=== PATIENT | male | born 1990 | race Caucasian/White ===

== ENCOUNTER → 2016-07-30 | Outpatient (CLI) | payer OTHER ==
[~2016-07-30] MED LIST: BACTRIM DS TABL1 TA1 PO; BENADRYL25 M1 PO; CEFTRIAXONE2 GM IM/IV; CLARITIN10 M2 PO; CLEOCIN HCL300 M1 PO; IBUPROFEN800 MG PO; KEFLEX500 MG PO; LABETALOL HCL100 MG PO; LEVAQUIN750 MG PO; LISINOPRIL5 MG PO; NO MEDICATIONS; NORVASC PO; PHENERGAN PO; PHENERGAN25 MG PO; PROAIR INH; SOD BICARBONATE PO; SYMBICORT INH; ULTRAM PO; VICODIN 5/500 T1 TAB PO; ZOFRAN PO
[2016-07-30 11:25] LABS: BASOPHIL% 0.6 % (0-2.5); EOSINOPHIL# 0.3 X10e3 (0-0.7); EOSINOPHIL% 5.3 % (0.0-7.0); HEMATOCRIT 43.1 % (38.0-50.0); HEMOGLOBIN 14.4 gm/dL (13.0-16.0); LYMPHOCYTE# 2.1 X10e3 (1.0-3.5); LYMPHOCYTE% 37.3 % (17.0-45.0); MEAN CELL VOLUME 90.5 FL (83-96); MEAN CORPUSCULAR HEMOGLOBIN 30.2 PG (28-34); MEAN CORPUSCULAR HGB CONC 33.4 g/dL (30-36); MEAN PLATELET VOLUME 8.2 FL (6.5-11.5); MONOCYTE# 0.4 X10e3 (0-1.0); NEUTROPHIL# 2.7 X10e3 (1.5-7.1); NEUTROPHIL% 49.8 % (40-75); PLATELET COUNT 188 X10e3 (140-420); RED BLOOD COUNT 4.76 X10e (3.90-5.60); RED CELL DISTRIBUTION WIDTH 13.6 % (11.0-15.5); WHITE BLOOD COUNT 5.5 X10e3 (4.0-10.5)
[2016-07-30 11:26] LABS: DIFF IND NO
[2016-07-30 11:39] LABS: URINE APPEARANCE CLEAR; URINE BILIRUBIN NEG (NEG); URINE BLOOD 3+ (NEG); URINE COLOR YELLOW; URINE GLUCOSE NEG (NEG); URINE KETONE NEG (NEG); URINE LEUKOCYTE ESTERASE NEG (NEG); URINE NITRATE NEG (NEG); URINE PH 5.5 (5-8); URINE PROTEIN 3+ (NEG); URINE SPECIFIC GRAVITY 1.024 (1.003-1.035)
[2016-07-30 11:42] LABS: URINE BACTERIA AUWI NEG (NEGATIVE); URINE SQUAMOUS EPITHELIAL CELL NONE SEEN /[HPF]
[2016-07-30 12:19] LABS: ALBUMIN SERUM 4.4 g/dL (3.5-5.0); BILIRUBIN,TOTAL 1.1 mg/dL (0.2-2.0); BUN/CREATININE RATIO 11.11; CREATININE SERUM 1.8 mg/dL (0.6-1.4); CREATININE,RANDOM URINE 353 mg/dL; GLOM FILT RATE Estimated 50.5 mL/min (>60); POTASSIUM 3.7 mmol/L (3.5-5.1); PROTEIN TOTAL SERUM 7.1 g/dL (6.0-8.3)
[2016-07-30 12:20] LABS: TOTAL PROTEIN,RANDOM URINE 188 mg/dl (<10)
== END | disposition home or self-care (01) ==
LOC: CLAB 10:51
PROVIDERS: Internal Medicine Nephrology
DX: N17.9 Acute kidney failure, unspecified (principal)
CPT/HCPCS: 36415; 80053; 81003; 82570; 84156; 85025

== ENCOUNTER → 2016-08-22 | Outpatient (CLI) | payer OTHER ==
--- NOTE | ~2016-08-22 | CT134 ---
[facility] A Service of [facility] RADIOLOGY TEXT RESULTS PATIENT: RHIANNA BRAR JR LOCATION: [facility] : 88 UNIT #: [id number] AGE: [address]: Rickey Marks MD SEX: M ORDER DR: [id number] [facility]. [place], [place] [address] [id number] O MR#: [id number] Acc #: [id number] NAME: RHIANNA BRAR JR : 1990 SEX: M STUDY DATE/TIME: 08/22/2016 9:31 UNIT: [facility] ROOM: STUDY DESCRIPTION: CT Guide Attending Physician: Rickey Marks M.D. Referring Physician: Rickey Marks M.D. Ordering Physician: Rickey Marks M.D. Primary Care Physician: Ching Patel M.D. MEDICAL IMAGING REPORT This report is preliminary unless electronic signature is present EXAM CT guided renal biopsy INDICTIONS: Proteinuria PROCEDURE The risks, benefits, and alternatives to the procedure were explained to the patient, and signed, informed consent was obtained. He was placed pone on the CT gantry and preliminary CT scans were performed through the region of interest. An appropriate site overlying the patient's left kidney was selected. The overlying skin was marked. The patient was prepped and draped in the usual sterile fashion. A time-out was performed as per protocol. The skin and subcutaneous tissues were anesthetized with buffered lidocaine, anesthesia needle was left in place. Repeat CT scan confirmed the appropriate trajectory of the needle and a 17 gauge coaxial needle was advanced into the inferior pole of the left kidney. Final CT scan confirmed appropriate position of the needle and at this point three core samples were obtained using an 18 gauge BioPince biopsy gun. The needle was removed, Gelfoam was applied to the tract. Manual pressure was applied until hemostasis was obtained. The patient tolerated the procedure well and there were no immediate complications. Moderate sedation was provided to the patient. I supervised the RN and monitored the patient's vital signs for a total of 20 minutes of gyol-ev-goih time. IMPRESSION Technically successful [place] left kidney biopsy as noted above. CT was used during the procedure and permanent images were saved. Dictated by... Zoey Ho M.D. [facility] A Service of [facility] RADIOLOGY TEXT RESULTS PATIENT: RHIANNA BRAR JR LOCATION: [facility] #: [id number] : [birth year] UNIT #: [id number] AGE: [address]: Rickey Marks MD SEX: M ORDER DR: THIS IS AN ELECTRONICALLY VERIFIED REPORT Zoey Ho M.D. at 08/25/2016 3:53 PM JAYSON/carroll TD: 08/25/2016 08:43 JOB #: [id number] MEDICAL IMAGING REPORT Page 1 of 1 COPY
[2016-08-22 08:39] LABS: HEMATOCRIT 41.3 % (38.0-50.0); HEMOGLOBIN 13.5 gm/dL (13.0-16.0); MEAN CELL VOLUME 91.7 FL (83-96); MEAN CORPUSCULAR HEMOGLOBIN 30.1 PG (28-34); MEAN CORPUSCULAR HGB CONC 32.8 g/dL (30-36); MEAN PLATELET VOLUME 7.6 FL (6.5-11.5); RED BLOOD COUNT 4.5 X10e (3.90-5.60); RED CELL DISTRIBUTION WIDTH 13.2 % (11.0-15.5); WHITE BLOOD COUNT 5.9 X10e3 (4.0-10.5)
[2016-08-22 09:02] LABS: BUN/CREATININE RATIO 9.37; CALCIUM SERUM 8.9 mg/dL (8.4-10.2); CREATININE SERUM 1.6 mg/dL (0.6-1.4); GLOM FILT RATE Estimated 58.2 mL/min (>60); POTASSIUM 3.4 mmol/L (3.5-5.1)
[2016-08-22 09:06] LABS: PARTIAL THROMBOPLASTIN TIME 30.1 SECONDS (23.5-31.3); PROTHROMBIN TIME (PATIENT) 11.2 SECONDS (10.0-11.7)
== END | disposition home or self-care (01) ==
LOC: CIVR 07:57
PROVIDERS: Internal Medicine Nephrology
DX: N26.9 Renal sclerosis, unspecified (principal); I12.9 Hypertensive chronic kidney disease with stage 1 through stage 4 chronic kidney disease, or unspecified chronic kidney disease; N18.9 Chronic kidney disease, unspecified; R80.9 Proteinuria, unspecified; R31.9 Hematuria, unspecified; Z79.899 Other long term (current) drug therapy; F17.200 Nicotine dependence, unspecified, uncomplicated; Z87.898 Personal history of other specified conditions; Z91.040 Latex allergy status; Z88.1 Allergy status to other antibiotic agents; Z88.8 Allergy status to other drugs, medicaments and biological substances
CPT/HCPCS: 36415; 77012; 80048; 85027; 85610; 85730; 88300; J2250; J3010

== ENCOUNTER → 2016-09-26 | Outpatient (CLI) | payer OTHER ==
[2016-09-26 10:58] LABS: URINE APPEARANCE CLEAR; URINE BILIRUBIN NEG (NEG); URINE BLOOD 2+ (NEG); URINE COLOR YELLOW; URINE GLUCOSE NEG (NEG); URINE KETONE NEG (NEG); URINE LEUKOCYTE ESTERASE NEG (NEG); URINE NITRATE NEG (NEG); URINE PROTEIN 2+ (NEG); URINE SPECIFIC GRAVITY 1.018 (1.003-1.035); URINE UROBILINOGEN 0.2 MG/DL (NEG)
[2016-09-26 11:00] LABS: U HYALINE CASTS AUWI 0-2 /[LPF]; URINE BACTERIA AUWI NEG (NEGATIVE); URINE SQUAMOUS EPITHELIAL CELL NONE SEEN /[HPF]; UWBCS1 AUWI 0-2 (0-5)
[2016-09-26 11:05] LABS: URINE SOURCE CLEAN CATCH
[2016-09-26 11:09] LABS: BASOPHIL% 0.6 % (0-2.5); EOSINOPHIL# 0.2 X10e3 (0-0.7); EOSINOPHIL% 3.9 % (0.0-7.0); HEMATOCRIT 38.9 % (38.0-50.0); HEMOGLOBIN 13.4 gm/dL (13.0-16.0); LYMPHOCYTE# 2.1 X10e3 (1.0-3.5); LYMPHOCYTE% 35.2 % (17.0-45.0); MEAN CELL VOLUME 91.6 FL (83-96); MEAN CORPUSCULAR HEMOGLOBIN 31.6 PG (28-34); MEAN CORPUSCULAR HGB CONC 34.5 g/dL (30-36); MEAN PLATELET VOLUME 7.6 FL (6.5-11.5); MONOCYTE# 0.4 X10e3 (0-1.0); MONOCYTE% 6.2 % (3.0-12.0); NEUTROPHIL# 3.3 X10e3 (1.5-7.1); NEUTROPHIL% 54.1 % (40-75); PLATELET COUNT 185 X10e3 (140-420); RED BLOOD COUNT 4.25 X10e (3.90-5.60)
[2016-09-26 11:10] LABS: DIFF IND NO
[2016-09-26 11:25] LABS: CREATININE,RANDOM URINE 145 mg/dL; TOTAL PROTEIN,RANDOM URINE 82 mg/dl (<10)
[2016-09-26 11:27] LABS: ALBUMIN SERUM 4.3 g/dL (3.5-5.0); BILIRUBIN,TOTAL 0.2 mg/dL (0.2-2.0); BUN/CREATININE RATIO 11.76; CALCIUM SERUM 9.2 mg/dL (8.4-10.2); CREATININE SERUM 1.7 mg/dL (0.6-1.4); GLOM FILT RATE Estimated 54.1 mL/min (>60); POTASSIUM 3.9 mmol/L (3.5-5.1); PROTEIN TOTAL SERUM 7.2 g/dL (6.0-8.3)
== END | disposition home or self-care (01) ==
LOC: CLAB 10:36
PROVIDERS: Internal Medicine Nephrology
DX: N17.9 Acute kidney failure, unspecified (principal)
CPT/HCPCS: 36415; 80053; 81003; 82570; 84156; 85025